=== PATIENT | male | born 1985 | race Caucasian/White ===

== ENCOUNTER 2025-01-30 10:10 | Day surgery (SDC) | payer BC ==
--- NOTE | 2025-01-28 11:05 | EKG ---
Test Date: 2025-01-27 Test Time: 12:03:49 Marine Diver: MEASUREMENT RESULTS: Intervals: Rate: 71 MT: 200 QRSD: 104 QT: 382 QTc: 415 [place]: P: 78 MT: 200 QRS: 85 T: 39 INTERPRETIVE STATEMENTS: Normal sinus rhythm Cannot rule out Anterior infarct, age undetermined Abnormal ECG No previous ECG available for comparison Electronically Signed On 01-28-25 11:03:55 ROVING INSPECTOR by Krish Verma
[2025-01-30] MEDS ORDERED: OXYMETAZOLINE HCL 0.05% 30ML NAS ONE (10:26)
[2025-01-30] MEDS: Ringers Lactate 1,000 ML IV ONE (11:02)
[2025-01-30] MEDS ORDERED: ROCURONIUM 50 MG/5 ML VIAL IV ONE (14:19)
[2025-01-30] MEDS ORDERED: propofoL 200 MG/20 ML VIAL IV ONE (14:19)
[2025-01-30] MEDS ORDERED: dexAMETHasone 10 MG/ML VIAL ONE (14:19)
[2025-01-30] MEDS ORDERED: FENTANYL CITR 100 MCG/2 ML ONE (14:19)
[2025-01-30] MEDS ORDERED: KETOROLAC 30 MG/ML INJ ONE (14:19)
[2025-01-30] MEDS ORDERED: ONDANSETRON 4 MG/2 ML VIAL ONE (14:19)
[2025-01-30] MEDS ORDERED: MIDAZOLAM HCL 2 MG/2 ML INJ ONE (14:19)
[2025-01-30] MEDS ORDERED: LIDOCAINE 2% MPF 5 ML VIAL ONE (14:19)
[2025-01-30] MEDS: OXYMETAZOLINE HCL 0.05% 30ML NAS ONE (15:00)
[2025-01-30] MEDS: LIDOCAINE HCL/EPINEPHRINE 20 ML MDV ONE (15:00)
[2025-01-30] MEDS: BACITRACIN OINTMENT 14 GM TUBE TOP ONE (15:54)
--- NOTE | 2025-01-30 16:15 | P.OP ---
Utility Spray Operator: NONE,NONE Preoperative diagnosis: septal deviation, nasal obstruction Postoperative diagnosis: same Primary procedure: septoplasty Anesthesia: general via ETT Estimated blood loss: 20ml Specimen: bone & cartilage from septum Findings: septal deviation and spur Operative Technique: Patient was brought to the operating room placed under general anesthesia via oral endotracheal tube. The head of bed was turned 90 degrees. The nasal hairs had been previously trimmed by the patient. The septum was examined using a headlight and nasal speculum and the patient was noted to have severe left septal deviation. The septum was injected with a total of 3 mL of 1% lidocaine with epinephrine. The patient was draped in a standard fashion for nasal mary lou marialuisa. A right hemitransfixion incision was made through the anterior mucosa and bilateral perichondrial flaps were elevated using a caudal elevator. Following elevation of the right mucosal flap, pledget was placed between the septum and the mucosal flap to aid in hemostasis. The patient's cartilaginous septum was noted to be displaced into the left nasal cavity and a swinging door technique was employed. The caudal attachment and the floor of the nose was elevated allowing mobilization of the cartilage. An incision was made through the posterior portion of the cartilaginous septum and a 5 x 1 cm portion was removed. This allowed better visualization of the significant left septal spur. Heavy scissors and Solis rongeurs were used along with Gopi forceps to divide and remove the bony septal spur which was significantly obstructing the left nasal cavity. The previously placed pledget was removed. After removal of these bony fragments the nasal airway was significantly improved. Due to the sharpness of the spur, laceration was made on the left mucoperichondrial flap over the edge of the spur during elevation but was not felt to be significant since the right mucoperichondrial flap was intact. The cartilaginous septum was then secured to the anterior nasal spine securing it in the midline using a 4-0 PDS suture on a P3 needle. On examination the nasal airway was significantly improved and there was no significant bleeding noted.. A Hernandez elevator was used to perform a inferior turbinate down fracture on the right and left side. The hemitransfixion incision was closed using resorbable sutures in a running fashion. A small resorbable suture on a Yon needle was used to perform a quilting suture to approximate the anterior mucoperichondrial flaps to the c artilage. Gonzales splints were placed within the bilateral nasal cavities and secured to the membranous septum using a single 4-0 nylon suture. All pledget counts were complete at the conclusion of the case. The patient was then returned to care of anesthesia for awakening and extubation and transport to the recovery room in stable condition. Complications: None Implants: Gonzales splints Fluids & blood products: see anesthesia record Transferred to: Recovery Room Condition: Good
[2025-01-30 16:39] VITALS: O2SAT 99
[2025-01-30 17:11] VITALS: BP 126/76; TEMP 97
== END 2025-01-30 17:20 | disposition home or self-care (01) ==
LOC: OR 10:10
PROVIDERS: ATTEND Otolaryngology
PROC: 09BM8ZZ Excision of Nasal Septum, Via Natural or Artificial Opening Endoscopic (ICD-10-PCS; principal; 2025-01-30 12:00)
DX: J34.2 Deviated nasal septum (principal); J34.89 Other specified disorders of nose and nasal sinuses
CPT/HCPCS: 30520; 93005; J2704; J2003; J2250; J3010; J1100; J2405; J7120; 88300